=== PATIENT | female | born 1965 | race American Indian/Alaskan Native ===

== ENCOUNTER 2022-05-18 10:28 | Day surgery (SDC) | payer BC ==
[~2022-05-18 10:28] MED LIST: ACETAMINOPHEN 500 MG TAB PO SCH; CELECOXIB 200 MG CAP PO NR; GABAPENTIN 300 MG CAP PO NR; LACTATED RINGERS 1,000 ML IV SCH; MIDAZOLAM 2 MG/2 ML INJ IV NR; ceFAZolin/STERILE WATER 2 GM/20 ML SYRINGE IV NR
[2022-05-18] MEDS ORDERED: ONDANSETRON 4 MG/2 ML INJ IV PRN (12:40)
--- NOTE | 2022-05-18 12:40 | Anesthesia Consultation ---
Anesthesia Consult and Med Hx Date of service: 05/18/22 - Airway Anesthetic Teeth Evaluation: Good ROM Head & Neck: Adequate Mental/Hyoid Distance: Adequate Mallampati Class: Class II Intubation Access Assessment: Probably Good - Pre-Operative Health Status ASA Pre-Surgery Classification: ASA2 Proposed Anesthetic Plan: General Nerve Block: Adductor canal + pop - Pulmonary Hx Smoking: No Hx Respiratory Symptoms: No Hx Sleep Apnea: No (JENNY PRE SCREEN LOW RISK) - Cardiovascular System Hx Hypertension: Yes (self d/c'd meds; BP controlled today) - Central Nervous System CVA: No Hx Psychiatric Problems: Yes (anxiety; took lexapro this morning) - Endocrine Hx Renal Disease: No Hx Liver Disease: No Hx Insulin Dependent Diabetes: No Hx Non-Insulin Dependent Diabetes: No Hx Thyroid Disease: No - Hematic Hx Anemia: No - Additional Comments Anesthesia Medical History Comments: No hx anesthetic complications.
--- NOTE | 2022-05-18 12:40 | Anesthesia Day of Surgery ---
Anesthesia Day of Surgery - Day of Surgery Patient Examined: Yes Patient H&P Reviewed: Yes Patient is NPO: Yes
[2022-05-18] MEDS ORDERED: traMADol 50 MG TAB PO PRN (12:41)
[2022-05-18] MEDS ORDERED: BUPIVACAINE/PF (0.25%) 2.5 MG/ML 30 ML VIAL INFILTRATI ONE (12:50)
[2022-05-18] MEDS ORDERED: dexAMETHasone 4 MG/ML VIAL ONE (12:50)
[2022-05-18] MEDS ORDERED: propofoL 200 MG/20 ML VIAL IV ONE (14:15)
[2022-05-18] MEDS ORDERED: fentaNYL 100 MCG/2 ML INJ ONE ×2 (14:15→14:19)
[2022-05-18] MEDS ORDERED: LIDOCAINE MPF (2%) 20 MG/1 ML VIAL 5 ML ONE (14:15)
[2022-05-18] MEDS ORDERED: fentaNYL 100 MCG/2 ML INJ IV SCH (14:23)
[2022-05-18] MEDS ORDERED: SODIUM CHLORIDE 0.9% IRR 1,500 ML BOTTLE IR ONE (15:34)
[2022-05-18] MEDS ORDERED: ePHEDrine SULFATE 50 MG/1 ML INJ ONE (15:42)
[2022-05-18] MEDS ORDERED: ONDANSETRON 4 MG/2 ML INJ ONE (15:52)
--- NOTE | 2022-05-18 16:07 | Procedure Note ---
Date of procedure: 05/18/22 Pre-op diagnosis: Displaced bimalleolar left ankle fracture Post-op diagnosis: same Procedure: Open reduction internal fixation left ankle fracture Procedure The patient was brought to the OR after having a femoral nerve block in preop holding for Postop pain management. The patient was placed on the OR table in supine position following induction and intubation the patient's left lower extremity was prepped and draped in the usual sterile manner. A timeout procedure was done to identify the patient and the correct operative site. The leg was then exsanguinated followed by inflation of the pneumatic tourniquet to 300 mmHg. A lateral incision was made over the distal fibula this is taken down sharply through skin and subcutaneous the fracture site was identified and using gentle manipulation the fracture fragments were reduced into a more anatomic position next a short [place] locked plate was applied with screws of appropriate length and AP and lateral view was obtained and showed good reduction at the fracture and placement of the hardware. Next using C-arm fluroscopy 2 guide wires inserted along medial malleoli utilizing percutaneous cannulated screws, position checked and found to be anatomic reduction medially. The wound was copiously irrigated the medial and lateral incisions were closed in a standard routine fashion postoperative dressings were applied as well as a well-padded posterior mold the patient tolerated the procedure there were no complications and he was sent to postanesthesia recovery in stable condition Anesthesia: MAC, regional Surgeon: MALIK HODGES (Mario Paez, 1st assist) Estimated blood loss: minimal Pathology: none Condition: stable Disposition: PACU
--- NOTE | 2022-05-18 16:29 | XRay Report ---
INTRAOPERATIVE FLUOROSCOPY: LEFT ANKLE INDICATION / CLINICAL INFORMATION: LEFT ANKLE FRACTURE SURGERY.. TECHNIQUE: Intraoperative spot images were obtained during the procedure. FINDINGS: Images show open reduction and internal fixation of the left ankle fracture See operative/procedure note by performing physician for full details. Fluoroscopy Time: 0.8 minutes. Fluoroscopy Images: 3. Signer Name: Esteban Ruiz MD Signed: 05/18/2022 4:24 PM Workstation Name: [id number]
[2022-05-18] MEDS: HYDROmorphone 0.5 MG/0.5 ML INJ IV PRN ×2 (17:04→17:19)
[2022-05-18] MEDS ORDERED: oxyCODONE /ACETAMINOPHEN 5-325MG TAB PO PRN (17:50)
[2022-05-18 18:15] VITALS: BP 128/69
--- NOTE | 2022-05-18 18:25 | Post Anesthesia Evaluation ---
- Post Anesthesia Evaluation Patient Participated: Yes Airway Patent: Yes Stable Respiratory Function: Yes Nausea/Vomiting: No Temp > 96.8F: Yes Pain Manageable: Yes Adequeate Hydration: Yes Anesthesia Complications: No
== END 2022-05-18 18:10 | disposition home or self-care (01) ==
LOC: OR 10:28
PROVIDERS: ATTEND Orthopaedic Surgery
DX: S82.842A Displaced bimalleolar fracture of left lower leg, initial encounter for closed fracture (principal); I10 Essential (primary) hypertension; F32.9 Major depressive disorder, single episode, unspecified; F41.9 Anxiety disorder, unspecified; Z91.040 Latex allergy status; Z88.8 Allergy status to other drugs, medicaments and biological substances; Z79.899 Other long term (current) drug therapy; Z91.81 History of falling; Z98.890 Other specified postprocedural states; X58.XXXA Exposure to other specified factors, initial encounter; Y93.89 Activity, other specified; Y92.89 Other specified places as the place of occurrence of the external cause; Y99.8 Other external cause status
CPT/HCPCS: 27814; 64447; 64450; 73610; C1713; J0690; J1100; J1170; J2250; J2405; J2704; J3010; J3490; J7120

== ENCOUNTER 2022-08-14 10:09 | Outpatient (CLI) | payer BC ==
--- NOTE | 2022-08-14 10:55 | XRay Report ---
. LEFT ANKLE 3 VIEWS INDICATION: S82.842A DISPLACED BIMALLIEOLAR FRACTURE OF LEFT LOWER LEG. COMPARISON: 05/09/2022 IMPRESSION: Previously described bimalleolar fracture has been internally fixated and appears in elsa tomic alignment. Fracture lines appear healed or nearly healed. No new acute process is appreciated. 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 Moderate plantar spur. Signer Name: Praveen Lorenzo Jr, MD Signed: 08/14/2022 10:51 AM Workstation Name: [id number]
== END 2022-08-14 10:10 | disposition home or self-care (01) ==
LOC: XRAY 10:09
PROVIDERS: ATTEND Orthopaedic Surgery
DX: S82.842A Displaced bimalleolar fracture of left lower leg, initial encounter for closed fracture (principal); M19.072 Primary osteoarthritis, left ankle and foot; M77.52 Other enthesopathy of left foot and ankle; X58.XXXA Exposure to other specified factors, initial encounter; Y93.89 Activity, other specified; Y92.89 Other specified places as the place of occurrence of the external cause; Y99.8 Other external cause status